=== PATIENT | female | born 1960 | race Caucasian/White ===

== ENCOUNTER 2024-07-19 12:42 | Inpatient (IN) | payer OTHER ==
[2024-07-19 13:15] VITALS: BMI 34.7
[2024-07-19] MEDS ORDERED: Bisacodyl 5 MG TAB PO PRN (13:42)
[2024-07-19] MEDS ORDERED: Ondansetron PF 4 MG/2 ML Vial IVP PRN (13:42)
[2024-07-19] MEDS ORDERED: Acetaminophen 325 MG TAB PO PRN (13:42)
[2024-07-19] MEDS ORDERED: traMADol HCl 50 MG TAB PO PRN ×2 (13:42)
[2024-07-19] MEDS: Furosemide 40 MG (4 mL) VIAL SLOW IVP SCH ×2 (14:22)
[2024-07-19 16:42] LABS: INR-International Normal Ratio 1.5; Prothrombin Time 17.6 sec (12.0-14.7)
[2024-07-19 17:00] LABS: HBsAg Index 0.25 S/CO (0-0.99); Hep A IgM AB NONREACTIVE (NonReactive); Hep A IgM S/CO 0.12 S/CO (0-0.79); Hep B Core IgM Index 0.06 S/CO (0-0.79); Hep B Surf Ag NONREACTIVE S/CO (NonReactive); Hep C IgG Ab NONREACTIVE S/CO (NonReactive); Hep C Index 0.17 S/CO (0-0.79); Hepatitis B Core IgM Abs NONREACTIVE S/CO (NonReactive)
[2024-07-20 05:19] LABS: #Basophils Less than 0.03 10x3/uL (0.0-0.2); %Basophils 0.2 % (0.0-1.0); %Lymphocytes 36.2 % (21.0-51.0); %Monocytes 12.8 % (0.0-10.0); %Neutrophils 46.6 % (42.0-75.0); Hematocrit 29.1 % (36.0-47.0); Mean Corpuscular HGB CONC 34.4 g/dL (32.0-36.0); Mean Corpuscular Hemoglobin 36.1 pg (27.0-31.0); Mean Corpuscular Volume 105.1 fL (78.0-98.0); Mean Platelet Volume 9.9 fL (7.4-10.4); Platelet Count 73 10x3/uL (130-400); RBC Distribution Width 14.1 % (11.5-14.5); Red Blood Cell (RBC) Count 2.77 mill/uL (4.20-5.40)
[2024-07-20 05:24] LABS: Anion Gap 12 mmol/L (10-20); BUN (Urea Nitrogen) 5 mg/dL (9.8-20.1); Calc. Creatinine Clearance 159 mL/min (70-130); Calcium 7.6 mg/dL (7.8-10.44); Carbon Dioxide 22 mmol/L (23-31); Chloride 104 mmol/L (98-107); Estimated GFR 101; Glucose 98 mg/dL (80-115); Potassium 2.8 mmol/L (3.5-5.1); Sodium 135 mmol/L (136-145)
[2024-07-20] MEDS ORDERED: FLU (Fluarix Triv) TS24-25(6MOS UP)/PF 45 MCG/0.5 ML Syringe IM ONE (09:00)
[2024-07-20] MEDS ORDERED: Non-Formulary Item 1 EACH (Losartan/Hydrochlorothiazide [Losartan-Hctz 100-25 Mg Tab] 1 E PO SCH (09:00)
[2024-07-20] MEDS: DULoxetine 60 MG CAP PO SCH (10:18)
[2024-07-20] MEDS: Potassium Chloride 20 MEQ TAB PO SCH (10:19)
[2024-07-20] MEDS: Hydrochlorothiazide 25 MG TAB PO SCH (10:19)
[2024-07-20] MEDS: Enoxaparin 40 MG (0.4 mL) SYRINGE SC SCH (10:19)
[2024-07-20 11:23] LABS: ALT (SGPT) 36 U/L (8-55); AST (SGOT) 78 U/L (5-34); Albumin 2.4 g/dL (3.4-4.8); Alkaline Phosphatase 95 U/L (40-110); Bilirubin, Direct 2.2 mg/dL (0.1-0.3); Bilirubin, Total 4.5 mg/dL (0.2-1.2); Protein, Total 5.7 g/dL (5.8-8.1)
[2024-07-20] MEDS: Losartan 25 MG TAB PO SCH (11:39)
[2024-07-20] MEDS: Albumin 25% 25 GM (100 mL) BOT IVPB SCH (16:33)
[2024-07-21 05:31] LABS: #Basophils Less than 0.03 10x3/uL (0.0-0.2); %Basophils 0.5 % (0.0-1.0); %Eosinophils 3.2 % (0.0-10.0); %Lymphocytes 42.9 % (21.0-51.0); %Monocytes 13.4 % (0.0-10.0); %Neutrophils 39.7 % (42.0-75.0); Hematocrit 26.6 % (36.0-47.0); Mean Corpuscular HGB CONC 33.8 g/dL (32.0-36.0); Mean Corpuscular Hemoglobin 36.1 pg (27.0-31.0); Mean Corpuscular Volume 106.8 fL (78.0-98.0); Mean Platelet Volume 9.8 fL (7.4-10.4); Platelet Count 64 10x3/uL (130-400); RBC Distribution Width 14.1 % (11.5-14.5); Red Blood Cell (RBC) Count 2.49 mill/uL (4.20-5.40)
[2024-07-21 05:34] LABS: Chloride 107 mmol/L (98-107); Sodium 138 mmol/L (136-145)
[2024-07-21 05:36] LABS: Anion Gap 10 mmol/L (10-20); BUN (Urea Nitrogen) 5 mg/dL (9.8-20.1); Calc. Creatinine Clearance 146 mL/min (70-130); Calcium 8.2 mg/dL (7.8-10.44); Carbon Dioxide 23 mmol/L (23-31); Estimated GFR 99; Glucose 99 mg/dL (80-115)
[2024-07-21] MEDS: Multivitamin W/ Minerals 1 TAB PO SCH (11:57)
[2024-07-21] MEDS: Thiamine 100 MG TAB PO SCH (11:57)
[2024-07-21] MEDS: Pantoprazole DR 40 MG TAB PO SCH (11:57)
[2024-07-21] MEDS: Folic Acid 1 MG TAB PO SCH (11:58)
[2024-07-21] MEDS: Potassium Chloride 20 MEQ TAB PO SCH (11:58)
[2024-07-22 07:55] LABS: Phosphorus 2.6 mg/dL (2.3-4.7)
[2024-07-22 07:56] LABS: #Basophils Less than 0.03 10x3/uL (0.0-0.2); %Basophils 0.2 % (0.0-1.0); %Eosinophils 2.6 % (0.0-10.0); %Lymphocytes 32.9 % (21.0-51.0); %Monocytes 11.2 % (0.0-10.0); %Neutrophils 52.9 % (42.0-75.0); Hematocrit 31.2 % (36.0-47.0); Hemoglobin 10.5 g/dL (12.0-16.0); Mean Corpuscular HGB CONC 33.7 g/dL (32.0-36.0); Mean Corpuscular Hemoglobin 36.3 pg (27.0-31.0); Mean Platelet Volume 9.4 fL (7.4-10.4); Platelet Count 77 10x3/uL (130-400); RBC Distribution Width 14.4 % (11.5-14.5); Red Blood Cell (RBC) Count 2.89 mill/uL (4.20-5.40)
[2024-07-22 07:59] LABS: Anion Gap 13 mmol/L (10-20); BUN (Urea Nitrogen) 6 mg/dL (9.8-20.1); Calc. Creatinine Clearance 133 mL/min (70-130); Calcium 8.7 mg/dL (7.8-10.44); Carbon Dioxide 26 mmol/L (23-31); Chloride 104 mmol/L (98-107); Estimated GFR 97; Glucose 144 mg/dL (80-115); Iron 89 ug/dL (50-170); Iron Binding Capacity, Total 143 mcg/dL (265-497); Magnesium 1.3 mg/dL (1.6-2.6); Potassium 3.2 mmol/L (3.5-5.1); Sodium 140 mmol/L (136-145)
[2024-07-22 08:09] LABS: Immunoglob - G (Total IgG) 1779 mg/dL (552-1631)
[2024-07-22] MEDS ORDERED: Electrolyte Replacement Protocol FS PRN (08:45)
[2024-07-22] MEDS: Potassium Chloride 20 MEQ TAB PO SCH (09:33)
[2024-07-22] MEDS: Thiamine 100 MG TAB PO SCH (09:35)
[2024-07-22] MEDS: Pantoprazole DR 40 MG TAB PO SCH (09:35)
[2024-07-22] MEDS: Folic Acid 1 MG TAB PO SCH (09:35)
[2024-07-22] MEDS: Multivitamin W/ Minerals 1 TAB PO SCH (09:36)
[2024-07-22] MEDS: ALPRAZolam 1 MG TAB PO PRN (09:45)
[2024-07-22] MEDS: Magnesium Sulfate In Water 4 GM in Premix 1 BAG IVPB SCH (09:53)
[2024-07-22] MEDS: Spironolactone 100 MG TAB PO SCH (11:21)
[2024-07-22] MEDS: Electrolyte Replacement Protocol 1 EACH FS ONE (11:26)
[2024-07-22 11:30] LABS: ANA Symphony (Qualitative) Negative (Negative); ANA Symphony (Quantitative) 0.3 Ratio (< 0.7 Negative); EliA Vaculitis New Method **** NEW METHOD ****; Mitochondrial Ab 2.2 U/mL (<4 Negative); dsDNA IgG Antibody 4.5 IU/mL (<10 Negative)
[2024-07-22 12:16] VITALS: BP 116/67; TEMP 98.5
[2024-07-22 14:24] LABS: Immunoglob - M (Total IgM) 135 mg/dL (33-293)
[2024-07-23] MEDS ORDERED: Furosemide 40 MG TAB PO SCH (07:30)
[2024-07-23] MEDS ORDERED: Spironolactone 100 MG TAB PO SCH (08:00)
== END 2024-07-22 13:00 | disposition home or self-care (01) | DRG 187 ==
LOC: MSONC 12:42
PROVIDERS: ADMIT Internal Medicine; ATTEND Internal Medicine
DX: J90 Pleural effusion, not elsewhere classified (principal); J94.8 Other specified pleural conditions; K70.31 Alcoholic cirrhosis of liver with ascites; I10 Essential (primary) hypertension; F41.9 Anxiety disorder, unspecified; F32.A Depression, unspecified; F10.10 Alcohol abuse, uncomplicated; E88.09 Other disorders of plasma-protein metabolism, not elsewhere classified; K70.11 Alcoholic hepatitis with ascites; D69.6 Thrombocytopenia, unspecified; Z87.891 Personal history of nicotine dependence
CPT/HCPCS: 36415; 71045; 71275; 74177; 74183; 80048; 80053; 80074; 80076; 82103; 82105; 82378; 82390; 82728; 83516; 83540; 83550; 83690; 83735; 83880; 84100; 84484; 85025; 85379; 85610; 86015; 86038; 86225; 93005; 93306; J1650; J1940; J3475; P9047

== ENCOUNTER 2025-03-09 09:30 | Outpatient (CLI) | payer MEDICARE, BC ==
[2025-03-11 09:19] LABS: Estimated GFR - POC 96.0
== END 2025-03-09 09:31 | disposition home or self-care (01) ==
LOC: MRI 09:30
PROVIDERS: ATTEND Physician Assistant Medical
DX: Z12.11 Encounter for screening for malignant neoplasm of colon (principal); K74.60 Unspecified cirrhosis of liver; D53.9 Nutritional anemia, unspecified; J90 Pleural effusion, not elsewhere classified; K76.89 Other specified diseases of liver
CPT/HCPCS: 36415; 74183; 82565